=== PATIENT | female | born 2005 | race Caucasian/White ===

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

== ENCOUNTER 2024-05-07 09:04 | Emergency (ER) | payer BC ==
[~2024-05-07] VITALS: Ht 162.6 cm; Wt 54.5 kg
[2024-05-07 09:06] VITALS: TEMP 98.1
[2024-05-07 10:04] LABS: BASO % 0.5 % (0.0-2.0); EOS # 0.1 K/mm3 (0.0-0.7); EOS % 1.4 % (0.0-4.0); GRAN # 2.1 K/mm3 (1.4-6.5); GRAN % 50.1 % (42.2-75.2); HEMATOCRIT 40.6 % (35.0-45.0); HEMOGLOBIN 13.8 g/dl (12.0-15.0); LYMPH # 1.6 K/mm3 (1.2-3.4); LYMPH % 38.9 % (20.0-51.0); MEAN CELL VOLUME 86 fl (80.0-95.0); MEAN CORPUSCULAR HEMOGLOBIN 29 pg (26-32); MEAN CORPUSCULAR HGB CONC 34 g/dl (33.0-37.0); MEAN PLATELET VOLUME 10.1 fl (7.4-10.4); MONO # 0.4 K/mm3 (0.1-0.6); MONO % 8.9 % (1.7-9.3); PLATELET COUNT 220 K/mm3 (130-400); RED BLOOD COUNT 4.74 M/mm3 (4.10-5.30); REDCELL DISTRIBUTION WIDTH-CV 12.4 % (11.5-14.5)
[2024-05-07 10:24] LABS: ALBUMIN 4.4 g/dL (3.5-5.0); BILIRUBIN,TOTAL 0.4 mg/dL (0.2-1.2); CALCIUM 9.6 mg/dL (8.4-10.2); CREATININE, serum 0.88 mg/dL (0.57-1.11); TOTAL PROTEIN 7.4 g/dl (6.2-8.1)
[2024-05-07 12:00] VITALS: BP 113/77; PULSE 79
[2024-05-07 12:17] LABS: COLLECTION METHOD CLEAN CATCH
[2024-05-07 12:20] LABS: URINE APPEARANCE TURBID (CLEAR/HAZY); URINE COLOR YELLOW (YELLOW)
[2024-05-07 12:21] LABS: URINE GLUCOSE NEGATIVE (NEGATIVE); URINE PROTEIN(semi-quant) TRACE (NEGATIVE)
[2024-05-07 12:23] LABS: URINE KETONE NEGATIVE (NEGATIVE); URINE NITRATE NEGATIVE (NEGATIVE); URINE UROBILINOGEN 0.2 (NEGATIVE)
[2024-05-07 12:24] LABS: URINE BACTERIA MANY /hpf (NONE SEEN); URINE BLOOD 2+ (NEGATIVE)
[2024-05-07 12:26] LABS: URINE WBC 0-2 /hpf (0-2)
== END 2024-05-07 12:09 | disposition home or self-care (01) ==
LOC: COL.ER 09:04
PROVIDERS: Family Medicine
DX: R10.9 Unspecified abdominal pain (principal); R19.7 Diarrhea, unspecified